=== PATIENT | female | born 1975 | race American Indian/Alaskan Native ===

== ENCOUNTER 2022-11-30 09:20 | Emergency (ER) | payer MEDICAID | END 2022-11-30 10:20 | LOC: MW.ED 09:20 | DX: Z88.8 Allergy status to other drugs, medicaments and biological substances | CPT/HCPCS: 99282; 99283 ==

== ENCOUNTER 2023-06-19 17:38 | Emergency (ER) | payer MEDICAID ==
[2023-06-19] MEDS ORDERED: Sulfamethoxazole/Trimethoprim 800-160 MG Tab PO ONE (18:14)
[2023-06-19] MEDS ORDERED: Acetaminophen 500 MG Tab PO ONE (18:39)
== END 2023-06-19 18:45 ==
LOC: MW.ED 17:38
DX: S80.212A Abrasion, left knee, initial encounter (principal); Z02.89 Encounter for other administrative examinations; F17.210 Nicotine dependence, cigarettes, uncomplicated; Z79.899 Other long term (current) drug therapy; Z88.6 Allergy status to analgesic agent; Z88.5 Allergy status to narcotic agent; Z86.14 Personal history of Methicillin resistant Staphylococcus aureus infection; W03.XXXA Other fall on same level due to collision with another person, initial encounter
CPT/HCPCS: 99283; A9270